=== PATIENT | female | born 1985 ===

== ENCOUNTER 2019-01-30 13:45 | Inpatient (IN) | payer OTHER ==
[~2019-01-30] VITALS: Ht 152.4 cm; Wt 73.0 kg
[2019-02-01] MEDS ORDERED: PRENATAL 19 TA1 EACH PO (04:51)
== END 2019-02-03 10:47 | disposition home or self-care (01) | DRG 807 ==
LOC: O/R 13:45 → LDR 02-01 03:16 → OB/GYN 02-01 03:16
PROVIDERS: ADMIT Obstetrics & Gynecology
PROC: 10E0XZZ Delivery of Products of Conception, External Approach (ICD-10-PCS; principal; 2019-02-01)
PROC: 4A1HXCZ Monitoring of Products of Conception, Cardiac Rate, External Approach (ICD-10-PCS; 2019-02-01)
DX: O80 Encounter for full-term uncomplicated delivery (principal); Z37.0 Single live birth; Z3A.38 38 weeks gestation of pregnancy